=== PATIENT | male | born 1985 | race Caucasian/White ===

== ENCOUNTER 2024-07-18 22:23 | Emergency (ER) | payer OTHER ==
[~2024-07-18] VITALS: Ht 180.3 cm; Wt 86.2 kg
[2024-07-19] MEDS: ACETAMINOPHEN ES 500 MG TABLET PO ONE
[2024-07-19] MEDS ORDERED: ACETAMINOPHEN ES 500 MG TABLET ONE (00:03)
[2024-07-19] MEDS ORDERED: IBUPROFEN 400 MG TABLET ONE (01:51)
[2024-07-19] MEDS: IBUPROFEN 400 MG TABLET PO ONE (01:52)
[2024-07-19 01:59] VITALS: BP 115/74; TEMP 98.1; O2SAT 98
== END 2024-07-19 02:00 | disposition home or self-care (01) ==
LOC: ER 22:40
DX: S02.642A Fracture of ramus of left mandible, initial encounter for closed fracture (principal); X58.XXXA Exposure to other specified factors, initial encounter; Y93.89 Activity, other specified; Y92.89 Other specified places as the place of occurrence of the external cause; Y99.9 Unspecified external cause status
CPT/HCPCS: 70450-TC; 70486-TC